=== PATIENT | female | born 1990 | race Caucasian/White ===

== ENCOUNTER 2019-04-18 13:02 | Emergency (ER) | payer MEDICAID ==
[~2019-04-18] VITALS: Ht 170.2 cm; Wt 86.2 kg
[2019-04-18 13:55] VITALS: BP 136/76
--- NOTE | 2019-04-18 14:01 | NUR ---
WAIT AT LOBBY.
--- NOTE | 2019-04-18 14:37 | NUR ---
PT TO CHAIR D WITH STEADY GAIT
--- NOTE | 2019-04-18 14:54 | NUR ---
C/O DRY COUGH, HEADACHE, RINORRHEA X LAST NIGHT. PAIN 5/10. PT AFEBRILE UPON TRIAGE. VS STABLE. PT ALERT AND AWAKE, AMBULATORY, LUNGS CLEAR BILTERALLY, RR EVEN AND UNLABORED. PT TOOK ADVIL PM LAST NIGHT PMH- DENIES
--- NOTE | 2019-04-18 14:56 | NUR ---
CLARIBEL VALERIO AT CHAIR
[2019-04-18 15:17] VITALS: BP 132/89
--- NOTE | 2019-04-18 15:17 | NUR ---
Patient discharged with v/s stable. Written and verbal after care instructions given and explained. Patient alert, oriented and verbalized understanding of instructions. Ambulatory with steady gait. All questions addressed prior to discharge. ID band removed. Patient advised to follow up with PMD. Rx of TYLENOL, TESALIZE ALEXIS given. Patient educated on indication of medication including possible reaction and side effects. Opportunity to ask questions provided and answered. PT INSTRUCTED TO TAKE MEDICATIONS PRN
== END 2019-04-18 15:17 | disposition home or self-care (01) ==
LOC: MED 13:02
DX: J06.9 Acute upper respiratory infection, unspecified (principal); R51 Headache
CPT/HCPCS: 99282